=== PATIENT | female | born 1995 | race African-American/Black ===

== ENCOUNTER 2022-07-12 15:35 | Emergency (ER) | payer MEDICAID ==
[~2022-07-12] VITALS: Ht 160 cm; Wt 95.3 kg
[2022-07-12] MEDS ORDERED: CARI350T PO (17:49)
[2022-07-12 17:55] VITALS: BP 118/77
--- NOTE | 2022-07-12 17:55 | NUR ---
Patient discharged to home in stable condition. Written and verbal after care instructions given. Patient verbalizes understanding of instruction.
== END 2022-07-12 17:55 | disposition home or self-care (01) ==
LOC: ER 15:35
DX: S29.012A Strain of muscle and tendon of back wall of thorax, initial encounter (principal); Z79.899 Other long term (current) drug therapy; X58.XXXA Exposure to other specified factors, initial encounter; Y93.89 Activity, other specified; Y92.89 Other specified places as the place of occurrence of the external cause; Y99.8 Other external cause status
CPT/HCPCS: 72074-TC